=== PATIENT | female | born 1985 | race Caucasian/White ===

== ENCOUNTER 2018-02-24 16:54 | Outpatient (REF) | payer BC, SELFPAY ==
--- NOTE | 2018-02-24 14:00 | PAPFT_PTH ---
PATIENT: Gifty Joshua LOC: [facility]#:[id number] AGE/SX: 32/F ROOM: RE02/24/[address]: Kacey Mcclain : 1985 BED: DIS: 02/24/2018 SPEC #: [id number] RECD: 02/25/18 13:03 STATUS: LAST RELeslie #: [id number] MANJIT: 02/24/18 14:[address]: Kacey Mcclain DEPT: [facility] Cytology RECD BY: Jaquelin Cesar ENTERED: 02/25/18 13:04 SP TYPE: PAPFT CHERRY DR: None Tissues: 1 - CX/ENDOCX FOR PAP SMEARS Procedures: PAP THIN PREP/[facility] Screening HPV DNA PROBE Comments: [id number] (CHLAMYDIA/GC)
[2018-02-28 15:30] LABS: Chlamydia Result Negative; GC Result Negative; Specimen Description SEE COMMENTS
== END 2018-02-24 17:14 ==
LOC: NCHCN 16:54
PROVIDERS: Visit Provider Nurse Practitioner Family
DX: Z11.3 Encounter for screening for infections with a predominantly sexual mode of transmission (principal); Z12.4 Encounter for screening for malignant neoplasm of cervix; Z11.51 Encounter for screening for human papillomavirus (HPV)
CPT/HCPCS: 87491; 87591; 88142; 87624

== ENCOUNTER 2018-03-31 14:15 | Outpatient (REF) | payer BC, SELFPAY ==
[2018-03-31 22:18] LABS: Abs Immature Grans 0.01 k/cumm (0.0-0.09); Absolute Basophil Count 0.02 k/cumm (0.0-0.2); Absolute Eosinophil Count 0.16 k/cumm (0.0-0.7); Absolute Lymphocyte Count 1.96 k/cumm (1.2-3.4); Absolute Monocyte Count 0.37 k/cumm (0.11-0.7); Absolute Neutrophil Count 2.76 k/cumm (1.2-6.7); Basophils % 0.4; HCT 40.3 % (36.0-46.0); HGB 13.8 g/dL (12.0-15.5); Immature Grans % 0.2; Lymphocytes % 37.1; Mean Corp. HGB Concentration 34.2 g/dL (32.0-36.0); Mean Corpuscular Hemoglobin 30.9 pg (27.0-33.0); Mean Corpuscular Volume 90.2 fL (80-95); Mean Platelet Volume 9.7 fL (8.0-11.0); Neutrophils % 52.3; Platelet Count 318 x1000/uL (130-400); RBC 4.47 m/cumm (4.00-5.20); RBC Distribution Width 12.8 % (11.7-14.6); White Blood Cell Count 5.28 k/cumm (4.4-10.8)
[2018-03-31 22:36] LABS: ALT 56 U/L (12-78); AST 30 U/L (15-37); Albumin 4.3 g/dL (3.4-5.0); Alkaline Phosphatase 76 U/L (46-116); Anion Gap 5.6 mmol/L (3-11); BUN 11 mg/dL (7-18); Bilirubin, Total 0.5 mg/dL (0.2-1.0); CO2 29.4 mmol/L (21.0-32.0); CREATININE 0.61 mg/dL (0.55-1.02); Calcium 9.3 mg/dL (8.5-10.1); Chloride 101 mmol/L (98-107); Glucose 84 mg/dL (70-100); Sodium 136 mmol/L (136-145); TSH (W/Ref FT4) 1.94 uIU/mL (0.358-3.74); Total Protein 7.9 g/dL (6.4-8.2)
== END 2018-03-31 14:35 ==
LOC: NCHCN 14:15
PROVIDERS: PCP Nurse Practitioner Family; Visit Provider Nurse Practitioner Family
DX: N93.9 Abnormal uterine and vaginal bleeding, unspecified (principal); R10.9 Unspecified abdominal pain
CPT/HCPCS: 80053; 84443; 85025

== ENCOUNTER 2019-01-09 15:41 | Outpatient (REF) | payer OTHER, SELFPAY | END 2019-01-09 16:01 | LOC: NCHCN 15:41 | PROVIDERS: PCP Nurse Practitioner Family; Visit Provider Registered Nurse | DX: R69 Illness, unspecified (principal) | CPT/HCPCS: 87491; 87591 ==

== ENCOUNTER 2019-10-25 10:05 | Outpatient (REF) | payer OTHER, SELFPAY ==
[2019-10-25 22:40] LABS: Abs Immature Grans 0.01 k/cumm (0.0-0.09); Absolute Basophil Count 0.01 k/cumm (0.0-0.2); Absolute Eosinophil Count 0.14 k/cumm (0.0-0.7); Absolute Lymphocyte Count 2.03 k/cumm (1.2-3.4); Absolute Monocyte Count 0.39 k/cumm (0.11-0.7); Absolute Neutrophil Count 2.48 k/cumm (1.2-6.7); Basophils % 0.2; Eosinophils % 2.8; HCT 39.3 % (36.0-46.0); HGB 13.7 g/dL (12.0-15.5); Immature Grans % 0.2 %; Lymphocytes % 40.1; Mean Corp. HGB Concentration 34.9 g/dL (32.0-36.0); Mean Corpuscular Hemoglobin 31.5 pg (27.0-33.0); Mean Corpuscular Volume 90.3 fL (80-95); Mean Platelet Volume 9.8 fL (8.0-11.0); Monocytes % 7.7; Platelet Count 310 x1000/uL (130-400); RBC 4.35 m/cumm (4.00-5.20); RBC Distribution Width 12.5 % (11.7-14.6); White Blood Cell Count 5.06 k/cumm (4.4-10.8)
[2019-10-25 23:23] LABS: ALT 45 U/L (14-59); AST 25 U/L (15-37); Albumin 4.2 g/dL (3.4-5.0); Alkaline Phosphatase 57 U/L (46-116); Anion Gap 9.4 mmol/L (3-11); BUN 16 mg/dL (7-18); Bilirubin, Total 0.3 mg/dL (0.2-1.0); CO2 26.6 mmol/L (21.0-32.0); CREATININE 0.76 mg/dL (0.55-1.02); Calcium 9.4 mg/dL (8.5-10.1); Chloride 104 mmol/L (98-107); Glucose 98 mg/dL (74-106); Potassium 4.4 mmol/L (3.5-5.1); Sodium 140 mmol/L (136-145); TSH (W/Ref FT4) 0.88 uIU/mL (0.36-3.74); Total Protein 7.7 g/dL (6.4-8.2); Vitamin B12 455 pg/mL (193-986)
[2019-10-25 23:36] LABS: Lipase 140 U/L (73-393)
[2019-10-26 05:50] LABS: Vitamin D 25 Total 26.4 ng/ml (30-100)
== END 2019-10-25 10:25 ==
LOC: NCHCN 10:05
PROVIDERS: PCP Nurse Practitioner Family; Visit Provider Nurse Practitioner Family
DX: R10.11 Right upper quadrant pain (principal); R53.83 Other fatigue; F41.9 Anxiety disorder, unspecified; F32.9 Major depressive disorder, single episode, unspecified
CPT/HCPCS: 80053; 82306; 83690; 82607; 84443; 85025

== ENCOUNTER 2020-03-12 12:53 | Outpatient (REF) | payer OTHER, SELFPAY ==
[2020-03-18 12:15] LABS: Chlamydia Result Negative (Negative); GC Result Negative (Negative)
== END 2020-03-12 13:13 ==
LOC: NCHCN 12:53
PROVIDERS: PCP Nurse Practitioner Family; Visit Provider Nurse Practitioner Family
DX: N93.9 Abnormal uterine and vaginal bleeding, unspecified (principal); R10.2 Pelvic and perineal pain
CPT/HCPCS: 87491; 87591

== ENCOUNTER 2020-06-24 14:59 | Outpatient (REF) | payer OTHER, SELFPAY ==
[2020-06-24 14:54] LABS: Calculated LDL 84 mg/dL (<100); Cholesterol 155 mg/dL (<200); HDL Cholesterol 65 mg/dL (40-60); Triglyceride 33 mg/dL (<150); Vitamin D 25 Total 46.1 ng/ml (30-100)
[2020-06-27 15:12] LABS: Testosterone, Total 29 ng/dL (8-60)
== END 2020-06-24 15:00 | disposition home or self-care (01) ==
LOC: NCHCN 14:59
PROVIDERS: PCP Nurse Practitioner Family; Visit Provider Nurse Practitioner Family
DX: L70.9 Acne, unspecified (principal); L68.0 Hirsutism; E55.9 Vitamin D deficiency, unspecified; Z00.00 Encounter for general adult medical examination without abnormal findings
CPT/HCPCS: 80061; 82306; 84403; 83036

== ENCOUNTER 2020-12-19 14:49 | Outpatient (REF) | payer MEDICAID, SELFPAY | END 2020-12-19 14:50 | disposition home or self-care (01) | LOC: NCHCN 14:49 | PROVIDERS: PCP Nurse Practitioner Family; Visit Provider Registered Nurse | DX: Z11.3 Encounter for screening for infections with a predominantly sexual mode of transmission (principal) | CPT/HCPCS: 87480; 87510; 87660 ==

== ENCOUNTER 2022-04-29 14:27 | Outpatient (REF) | payer MEDICAID, SELFPAY ==
[2022-04-30 09:45] LABS: Syphilis Serology (RPR) Negative (Negative)
[2022-04-30 10:09] LABS: Hepatitis C Ab w Rflx HCV PCR Negative (Negative)
[2022-04-30 10:34] LABS: HIV-1/2 Ag & Ab Screen Negative (Negative)
[2022-04-30 13:46] LABS: Chlamydia Result Negative (Negative); GC Result Negative (Negative)
== END 2022-04-29 14:28 | disposition home or self-care (01) ==
LOC: NCHCN 14:27
PROVIDERS: PCP Nurse Practitioner Family; Visit Provider Nurse Practitioner Family
DX: Z11.4 Encounter for screening for human immunodeficiency virus [HIV] (principal); Z11.3 Encounter for screening for infections with a predominantly sexual mode of transmission; Z11.59 Encounter for screening for other viral diseases
CPT/HCPCS: 86803; 87389; 87491; 87591; 86592

== ENCOUNTER 2022-06-22 19:19 | Outpatient (REF) | payer MEDICAID, SELFPAY ==
[2022-06-24 15:12] LABS: Chlamydia Result Negative (Negative); GC Result Negative (Negative)
== END 2022-06-22 19:20 | disposition home or self-care (01) ==
LOC: NCHCN 19:19
PROVIDERS: PCP Nurse Practitioner Family; Visit Provider Nurse Practitioner Family
DX: Z11.3 Encounter for screening for infections with a predominantly sexual mode of transmission (principal)
CPT/HCPCS: 87491; 87591

== ENCOUNTER 2022-12-22 17:11 | Outpatient (REF) | payer MEDICAID, SELFPAY ==
--- NOTE | 2022-12-22 16:00 | PAPFT_PTH ---
PATIENT: Gifty Joshua LOC: [facility] U#:[id number] AGE/SX: 37/F ROOM: RE12/22/[address]: Monse Edouard : 1985 BED: DIS: 12/22/2022 SPEC #: [id number] RECD: 12/23/22 13:02 STATUS: LAST RASCON #: [id number] MANJIT: 12/22/22 16:[address]: Monse Edouard [facility] RECD BY: Jaquelin Cesar ENTERED: 12/23/22 13:02 SP TYPE: PAPFT OTHR DR: Kacey Mcclain Tissues: 1 - CX/ENDOCX FOR PAP SMEARS Procedures: PAP THIN PREP/[facility] Screening Comments: [id number] (CHLAMYDIA/GC) (UNSATISFACTORY FOR EVALUATION)
[2022-12-24 14:37] LABS: Chlamydia Result Negative (Negative); GC Result Negative (Negative)
== END 2022-12-22 17:12 | disposition home or self-care (01) ==
LOC: NCHCN 17:11
PROVIDERS: PCP Nurse Practitioner Family; Visit Provider Nurse Practitioner Family
DX: Z12.4 Encounter for screening for malignant neoplasm of cervix (principal); R87.615 Unsatisfactory cytologic smear of cervix
CPT/HCPCS: 87491; 87591; 88142

== ENCOUNTER 2024-06-05 16:25 | Outpatient (REF) | payer MEDICAID, SELFPAY ==
--- NOTE | 2024-06-05 15:00 | PAPFT_PTH ---
PATIENT: Gifty Joshua LOC: [facility]#:[id number] AGE/SX: 38/F ROOM: RE06/05/[address]: Monse Edouard : 1985 BED: DIS: 06/05/2024 SPEC #: [id number] RECD: 06/06/24 12:59 STATUS: JOHNSONRosanna REQ #: [id number] MANJIT: 06/05/24 15:[address]: Monse Edouard DEPT: [facility] Cytology RECD BY: Jaquelin Cesar ENTERED: 06/06/24 12:59 SP TYPE: PAPFT OTHR DR: Kacey Mcclain Tissues: 1 - CX/ENDOCX FOR PAP SMEARS Procedures: PAP THIN PREP/[facility] Screening HPV DNA PROBE Comments: [id number] (HPV 16 & 18/45)
== END 2024-06-05 16:26 | disposition home or self-care (01) ==
LOC: NCHCN 16:25
PROVIDERS: PCP Nurse Practitioner Family; Visit Provider Nurse Practitioner Family
DX: Z11.51 Encounter for screening for human papillomavirus (HPV) (principal); Z01.419 Encounter for gynecological examination (general) (routine) without abnormal findings
CPT/HCPCS: 88142; 87624